=== PATIENT | female | born 1950 | race Caucasian/White ===

== ENCOUNTER → 2019-01-31 | Outpatient (CLI) | payer MEDICARE, BC ==
--- NOTE | 2019-01-31 12:04 | REP ---
CT of the chest without IV contrast for cough,: Comparison is a portable chest dated 12/19/2018. There are no comparison chest CT studies. There is a multilobulated irregular nodule anteriorly in the right upper lobe apex measuring up to 2 cm in diameter. There is a 8 mm nodule in the deep posterior sulcus of the left lower lobe. No other lung nodules or masses are identified. There are no infiltrates or effusions. The mediastinal azygos node measures up to 10 mm short axis, upper normal for this node. There is no mediastinal lymph node enlargement, otherwise. There is no axillary lymph node enlargement. The study is insensitive for hilar lymph node enlargement in the absence of IV contrast. The unenhanced thoracic aorta is unremarkable. Cardiac size appears mildly enlarged. There is no pericardial effusion. Upper abdomen: There is no adrenal mass. The visualized upper abdominal contents are otherwise unremarkable. Impression: There is a multilobulated irregular 2.0 cm nodule anteriorly in the apex of the right upper lobe. There is an 8 mm nodule in the deep inferior posterior sulcus of the left lower lobe. No adenopathy. No infiltrate or effusion. No comparison CT studies. Electronically Signed by Rome Rollins MD 01/31/2019 11:57 A
== END ==
LOC: M RAD 09:55
PROVIDERS: ATTEND Internal Medicine Pulmonary Disease
DX: R91.8 Other nonspecific abnormal finding of lung field (principal)

== ENCOUNTER → 2019-03-13 | Outpatient (REF) ==
[2019-03-13 14:16] LABS: BASO # 0.1 10^3/uL (0.0-0.2); BASO % 0.9 % (0.0-1.0); EOS # 0.2 10^3/uL (0.0-0.50); EOS % 2.5 % (0.0-3.0); HEMATOCRIT 39.2 % (36.0-47.0); HEMOGLOBIN 12.8 g/dl (12.0-15.5); LYMPH # 2.7 10^3/uL (1.5-4.5); LYMPH % 30.8 % (24.0-44.0); MEAN CORPUSCULAR HEMOGLOBIN 30.9 pg (27.0-33.0); MEAN CORPUSCULAR HGB CONC 32.7 g/dl (32.0-36.5); MEAN CORPUSCULAR VOLUME 94.7 fl (80.0-96.0); MONO # 0.7 10^3/uL (0.0-0.8); MONO % 7.9 % (0.0-5.0); NEUTROPHILS # 5.1 10^3/uL (1.8-7.7); NEUTROPHILS % 57.7 % (36.0-66.0); PLATELET COUNT, AUTOMATED 295 10^3/uL (150-450); RED BLOOD COUNT 4.14 10^6/uL (4.00-5.40); WHITE BLOOD COUNT 8.8 10^3/uL (4.0-10.0)
== END ==
LOC: M LABSMT 13:18
PROVIDERS: ATTEND Allergy & Immunology Allergy
DX: J45.50 Severe persistent asthma, uncomplicated (principal)

== ENCOUNTER → 2019-03-19 | Outpatient (CLI) | payer MEDICARE, BC ==
--- NOTE | 2019-03-19 14:53 | REP ---
CT CHEST: REASON: Followup 2 cm size nodule right upper lobe and 8 mm size nodule left lower lobe. COMPARISON: 01/31/2019. The mediastinum and pulmonary crista are unchanged. There is no evidence of a mass or adenopathy. There are no pleural or pericardial effusions. There are no change in the imaged upper abdomen or imaged osseous structures. Evaluation of the lung son shows resolution of the previously present asymmetric density in the right upper lobe. The 8 mm size nodule in the left lower lobe is unchanged. There are a few scattered ground glass opacities which are also stable and likely secondary to subsegmental atelectatic changes. There are no new abnormal nodules, masses, or opacities. IMPRESSION: 1. Resolution of the density seen previously in the right upper lobe. 2. Stable left lower lobe nodule which can now be categorized as a category [address]. Electronically Signed by Chandra Graff DO 03/19/2019 04:14 P
== END ==
LOC: M RAD 10:56
PROVIDERS: ATTEND Physician Assistant
DX: R91.8 Other nonspecific abnormal finding of lung field (principal)

== ENCOUNTER → 2019-09-30 | Outpatient (CLI) | payer MEDICARE, BC ==
--- NOTE | 2019-09-30 15:59 | REP ---
CT chest without contrast: History: Abnormal finding of the lung field. Comparison CT studies are from March 19, 2019 and January 31, 2019. CT findings: There is a stable 8 mm noncalcified pulmonary nodule in the left lower lobe on page 86 of 108 in series 201 of today's study. This is unchanged from the January 31, 2019 prior study. There is a peribronchovascular 4 mm noncalcified pulmonary nodule in the right lower lobe on page 62 of 108 in series 201 of today's study. This is also unchanged, visible in retrospect, on the January 31, 2019 prior study. There is a granulomatous calcification in the right lower lobe on page 64 and a stable tiny nodular opacity with adjacent dilated airway on in the right upper lobe on page 23. These are also unchanged. No new pulmonary nodule is appreciated. No infiltrate is seen. No hilar or mediastinal mass or adenopathy observed. No pleural or pericardial effusion is seen. No bony destructive lesion. There is moderate diffuse fatty infiltration of the liver again seen. Impression: Stable nodular densities left lower lobe, right lower lobe, and right upper lobe unchanged from January 31, 2019. Fatty infiltration of the liver. Repeat CT study of the chest suggested in 1 year. Electronically Signed by Harshal Hawthorne MD 09/30/2019 04:24 P
== END ==
LOC: M RAD 14:53
PROVIDERS: ATTEND Internal Medicine Pulmonary Disease
DX: R91.8 Other nonspecific abnormal finding of lung field (principal)

== ENCOUNTER → 2020-05-08 | Outpatient (CLI) | payer MEDICARE, BC ==
--- NOTE | 2020-05-13 09:46 | REP ---
CT CHEST WITHOUT CONTRAST HISTORY: Other nonspecific abnormal finding of lung field. COMPARISON: Chest CT studies are reviewed, the most recent of which is from 09/30/2019 and the most remote 01/31/2019. CT FINDINGS: There has been no change in the size or appearance of the 7-mm nodule in the left lower lobe in the interval since the 01/31/[address] study. Similarly, there is a peribronchovascular 4-mm nodule in the right lower lobe displayed on Page 57 of 106 of todays study, which is also unchanged from the 01/31/2019 study. There is a tiny granulomatous calcification in the right lower lobe on Page 56. A tiny 3 mm stable nodule is seen in the right apex on Page 18, unchanged from 01/2019. No new pulmonary nodule is seen. Lung son are otherwise clear. No pleural or pericardial effusion is seen. There is moderate diffuse fatty infiltration of the liver. No adrenal abnormality is observed. No hilar or mediastinal mass or adenopathy is observed. IMPRESSION: Multiple stable noncalcified pulmonary nodules unchanged from 01/31/2019 prior study. Consider additional follow-up in one year to document two years of stability. Moderate diffuse fatty infiltration of the liver is noted incidentally. MTDD
== END ==
LOC: M RAD 12:24
PROVIDERS: ATTEND Physician Assistant
DX: R91.8 Other nonspecific abnormal finding of lung field (principal)

== ENCOUNTER → 2020-09-17 | Outpatient (REF) | payer MEDICARE, BC ==
[2020-09-17 18:48] LABS: CREATININE, URINE 41.7 MG/DL; MALB URINE SIEMENS 6.3 MG/L; MAU/CREAT RATIO 15.1 MCG/MG (0.0-30.0)
== END ==
LOC: M LAB REF 16:41
PROVIDERS: ATTEND Internal Medicine Endocrinology, Diabetes & Metabolism
DX: E11.65 Type 2 diabetes mellitus with hyperglycemia (principal)

== ENCOUNTER → 2021-12-26 | Outpatient (REF) | payer MEDICARE, BC | LOC: M LAB REF 12:00 | PROVIDERS: ATTEND Internal Medicine Pulmonary Disease | DX: R05.9 Cough, unspecified (principal) ==

== ENCOUNTER → 2021-12-27 | Outpatient (CLI) | payer MEDICARE, BC | LOC: M RAD 12:28 | PROVIDERS: ATTEND Internal Medicine Pulmonary Disease | DX: R05.9 Cough, unspecified (principal) ==

== ENCOUNTER → 2023-10-25 | Outpatient (REF) | payer MEDICARE ==
[2023-10-25 17:49] LABS: CREATININE, URINE 59.1 MG/DL; MALB URINE SIEMENS < 3.0 MG/L
== END ==
LOC: M LAB REF 16:50
PROVIDERS: ATTEND Nurse Practitioner Family
DX: E11.65 Type 2 diabetes mellitus with hyperglycemia (principal)